=== PATIENT | male | born 2000 | race Two or more races ===

== ENCOUNTER 2023-08-22 22:21 | Emergency (ER) | payer OTHER ==
[~2023-08-22] VITALS: Ht 182.9 cm; Wt 93.0 kg
[2023-08-22 23:32] VITALS: BP 140/80; TEMP 98.4; O2SAT 99
[2023-08-22] MEDS ORDERED: IBUPROFEN 400 MG TABLET ONE (23:36)
[2023-08-22] MEDS: IBUPROFEN 400 MG TABLET PO ONE (23:36)
== END 2023-08-23 00:27 | disposition home or self-care (01) ==
LOC: ER 22:40
DX: S93.402A Sprain of unspecified ligament of left ankle, initial encounter (principal); Z60.2 Problems related to living alone; X58.XXXA Exposure to other specified factors, initial encounter; Y93.67 Activity, basketball; Y92.89 Other specified places as the place of occurrence of the external cause; Y99.8 Other external cause status
CPT/HCPCS: 73610-TC